=== PATIENT | female | born 1975 | race Caucasian/White ===

== ENCOUNTER → 2017-12-06 | Outpatient (CLI) | payer OTHER | LOC: MC.RAD 07:17 | DX: Z12.31 Encounter for screening mammogram for malignant neoplasm of breast (principal) ==

== ENCOUNTER → 2019-05-09 | Outpatient (CLI) | payer OTHER | LOC: MC.RAD 07:27 | DX: Z12.31 Encounter for screening mammogram for malignant neoplasm of breast (principal) ==

== ENCOUNTER → 2020-08-22 | Outpatient (CLI) | payer OTHER | LOC: MC.RAD 07:15 | DX: Z12.31 Encounter for screening mammogram for malignant neoplasm of breast (principal) ==

== ENCOUNTER → 2021-09-04 | Outpatient (CLI) | payer BC | LOC: MC.RAD 07:02 | DX: Z12.31 Encounter for screening mammogram for malignant neoplasm of breast (principal) ==

== ENCOUNTER 2023-03-11 10:30 | Day surgery (SDC) | payer BC ==
[2023-03-11] VITALS (11 sets, daily range): BP systolic 120–150; BP diastolic 61–95; PULSE 50–90; TEMP 97.3–98
[~2023-03-11] VITALS: Ht 167.6 cm; Wt 83.6 kg
[2023-03-11] MEDS ORDERED: ZYRTEC 10MG10 MG PO (11:03)
[2023-03-11] MEDS ORDERED: SINGULAIR 110 MG/TAB PO (11:03)
[2023-03-11] MEDS ORDERED: MELATONIN ER10 MG PO (11:04)
[2023-03-11] MEDS ORDERED: NATURAL MAGNES200 MG PO (11:04)
[2023-03-11] MEDS ORDERED: B COMPLEX #11 TA1 PO (11:05)
[2023-03-11] MEDS ORDERED: PROBIOTIC BLEN1 EACH PO (11:06)
[2023-03-12 04:15] VITALS: BP 100/68; PULSE 65; TEMP 98.4
[2023-03-12 07:00] VITALS: BP 122/97; PULSE 68; TEMP 98.5
--- NOTE | 2023-03-12 09:40 | NUR ---
Initial visit; Patient thanked [employer] Developer for looking in on her and offering God's blessings. Shyla said she is doing well and has a great physician with the same name as she.
--- NOTE | 2023-03-12 10:22 | NUR ---
1015 PT REVIEWED DISCHARGE INFORMATION, DISCHARGE VIA W/C ACCOMPANIED BY THIS NURSE, AND BOYFRIEND
== END 2023-03-12 10:15 | disposition home or self-care (01) ==
LOC: SDCO 10:30 → OB 15:45 → SDCO 03-12 10:15
DX: D25.1 Intramural leiomyoma of uterus (principal); D25.2 Subserosal leiomyoma of uterus; N92.1 Excessive and frequent menstruation with irregular cycle; N80.03 Adenomyosis of the uterus; N83.201 Unspecified ovarian cyst, right side; E66.9 Obesity, unspecified; Z68.31 Body mass index [BMI] 31.0-31.9, adult
CPT/HCPCS: OP; A4314; J0690; J1100; J1885; J2405; J2704; J2710; J3010; J7120

== ENCOUNTER → 2024-01-18 | Outpatient (CLI) | payer BC ==
[~2024-01-18] MED LIST: B COMPLEX #11 TA1 PO; MELATONIN ER10 MG PO; NATURAL MAGNES200 MG PO; PROBIOTIC BLEN1 EACH PO; SINGULAIR 110 MG/TAB PO; ZYRTEC 10MG10 MG PO
== END ==
LOC: MC.RAD 14:29
DX: Z12.31 Encounter for screening mammogram for malignant neoplasm of breast (principal)